=== PATIENT | male | born 1980 | race Caucasian/White ===

== ENCOUNTER 2021-01-21 03:12 | Day surgery (SDC) | payer OTHER ==
[~2021-01-21] VITALS: Wt 155.6 kg
[~2021-01-21 03:12] MED LIST: DICY20 PO; DULO30 PO; GABA300 PO; MORP60ER PO; ONDA8 PO; Prinivil10 MG PO; TIOT18 INH
[2021-01-21] MEDS ORDERED: LISI20 PO (09:11)
[2021-01-21] MEDS ORDERED: PRED20 PO (09:12)
[2021-01-21] MEDS ORDERED: ALBU2.5V5 INH (09:13)
== END 2021-01-21 10:09 | disposition home or self-care (01) ==
LOC: ATC 03:12
DX: K50.811 Crohn's disease of both small and large intestine with rectal bleeding (principal); J44.9 Chronic obstructive pulmonary disease, unspecified; K21.9 Gastro-esophageal reflux disease without esophagitis; F17.210 Nicotine dependence, cigarettes, uncomplicated; Z79.899 Other long term (current) drug therapy
CPT/HCPCS: 96365; J3380; J7050

== ENCOUNTER 2021-01-24 10:59 | Day surgery (SDC) | payer OTHER ==
[~2021-01-24] VITALS: Ht 188 cm; Wt 147.2 kg
[~2021-01-24 10:59] MED LIST changes: +ALBU2.5V5 INH; +LISI20 PO; +PRED20 PO
== END 2021-01-24 13:50 | disposition home or self-care (01) ==
LOC: ORSCSDS 10:59
DX: K50.811 Crohn's disease of both small and large intestine with rectal bleeding (principal); K63.5 Polyp of colon; K64.8 Other hemorrhoids; J44.9 Chronic obstructive pulmonary disease, unspecified; Z80.0 Family history of malignant neoplasm of digestive organs; Z79.899 Other long term (current) drug therapy; F17.210 Nicotine dependence, cigarettes, uncomplicated
CPT/HCPCS: 88305; J2250; J2704; J7120